=== PATIENT | female | born 1960 | race Two or more races ===

== ENCOUNTER 2016-10-31 14:38 | Emergency (ER) | payer SELFPAY ==
[~2016-10-31] VITALS: Ht 167.6 cm; Wt 99.8 kg
[2016-10-31] MEDS ORDERED: Methocarbamol 750mg tab ORAL ONE (15:15)
--- NOTE | 2016-10-31 16:25 | Diagnostic Imaging Report ---
Indication: PAIN Technique: Spiral acquisitions obtained through the cervical spine. No IV contrast utilized. Multiplanar reconstructions were generated. Total dose length product 472 mGycm. CTDIvol(s) 25 mGy Comparison: None Findings: No acute fractures. No dislocations. Bony alignment is normal. Vertebral body heights are preserved. The disc spaces are preserved. There is no prevertebral soft tissue swelling. At C2-3, facet hypertrophy results in mild neural foraminal narrowing. No significant disc bulge or protrusion or spinal stenosis. At C5-6, posterior osteophytes impinge slightly on the anterior aspect of the spinal canal, narrowing it to 9 mm minimum AP dimension. The neural foramina are preserved. At the remaining disc levels, no significant disc bulge or protrusion, spinal stenosis, or neural foraminal stenosis. The thyroid is diffusely enlarged, possibly slightly heterogeneous. The included lung apices are clear. The remaining extraspinal soft tissues are unremarkable. Impression: No acute bony trauma Minimal degenerative changes, as detailed above Diffusely enlarged possibly heterogeneous thyroid. Consider further evaluation with thyroid ultrasound as clinically indicated The CT scanner at [facility] is accredited by the [employer] and the scans are performed using protocols designed to limit radiation exposure to as low as reasonably achievable to attain images of sufficient resolution adequate for diagnostic evaluation.
[2016-10-31] MEDS ORDERED: ROBAXIN-750750 MG PO (16:31)
[2016-10-31] MEDS ORDERED: IBUPROFEN600 MG ORAL (16:31)
[2016-10-31 16:45] VITALS: BP 151/87
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
== END 2016-10-31 16:49 | disposition home or self-care (01) ==
LOC: EMR 15:28
DX: S16.1XXA Strain of muscle, fascia and tendon at neck level, initial encounter (principal); R51 Headache; S50.811A Abrasion of right forearm, initial encounter; S50.812A Abrasion of left forearm, initial encounter; V43.52XA Car driver injured in collision with other type car in traffic accident, initial encounter; Y93.9 Activity, unspecified; Y92.410 Unspecified street and highway as the place of occurrence of the external cause
CPT/HCPCS: 72125; 99284